=== PATIENT | female | born 1970 | race Caucasian/White ===

== ENCOUNTER 2017-09-14 08:05 | Emergency (ER) | payer MEDICAID, OTHER ==
[~2017-09-14] VITALS: Ht 162.6 cm; Wt 86.0 kg
[~2017-09-14 08:05] MED LIST: [UNRECOGNIZED DRUG - OTHER]
[2017-09-14] MEDS ORDERED: PREDNISONE 20MG TABLET PO ONE (09:15)
[2017-09-14 09:38] LABS: CLARITY URINE CLOUDY (CLEAR); COLOR URINE DARK YELLOW (YELLOW); KETONES URINE 4+ (NEGATIVE); LEUKOCYTE ESTERASE URINE TRACE (NEGATIVE); NITRITE URINE NEGATIVE (NEGATIVE); OCCULT BLOOD URINE NEGATIVE (NEGATIVE); PROTEIN URINE TRACE (NEGATIVE); SPECIFIC GRAVITY URINE 1.027 (1.005-1.030)
[2017-09-14] MEDS ORDERED: SODIUM CHLORIDE 0.9% 1,000 ML IV ONE (09:41)
[2017-09-14] MEDS ORDERED: KETOROLAC 30MG/ML VIAL IV ONE (09:45)
[2017-09-14 11:22] VITALS: BP 114/69
== END 2017-09-14 11:29 | disposition home or self-care (01) ==
LOC: ER 08:05
DX: J02.9 Acute pharyngitis, unspecified (principal); Z90.49 Acquired absence of other specified parts of digestive tract
CPT/HCPCS: 81003; 81025; 96361; 96374; 99284; J1885; J7030; J7512; Z7610

== ENCOUNTER 2018-03-07 13:37 | Emergency (ER) | payer OTHER ==
[~2018-03-07] VITALS: Ht 165.1 cm; Wt 89.0 kg
[2018-03-07 14:00] VITALS: BP 138/65
[2018-03-07] MEDS ORDERED: KETOROLAC 60MG/2ML VIAL IM ONE (14:45)
== END 2018-03-07 16:07 | disposition home or self-care (01) ==
LOC: ER 14:43
DX: M25.552 Pain in left hip (principal); W01.0XXA Fall on same level from slipping, tripping and stumbling without subsequent striking against object, initial encounter; Y93.89 Activity, other specified; Y92.9 Unspecified place or not applicable; Z90.49 Acquired absence of other specified parts of digestive tract
CPT/HCPCS: 73502; 81025; 96372; 99283; J1885

== ENCOUNTER 2018-10-01 02:53 | Emergency (ER) | payer OTHER ==
[~2018-10-01] VITALS: Ht 165.1 cm; Wt 91.0 kg
[2018-10-01] MEDS ORDERED: ONDANSETRON HCL 4MG/2ML INJ IV STA (07:20)
[2018-10-01] MEDS ORDERED: SODIUM CHLORIDE 0.9% 1,000 ML IV ONE (07:20)
[2018-10-01] MEDS ORDERED: KETOROLAC 30MG/ML VIAL IV STA (07:20)
[2018-10-01 07:59] LABS: BASOPHILS % 0.6 % (0.0-2.0); EOSINOPHILS % 2.7 % (0.0-5.0); HEMATOCRIT. 37.6 % (36.0-48.0); HEMOGLOBIN. 13.2 g/dL (12.0-16.0); LYMPHOCYTES % 30.1 % (20.0-50.0); MEAN CORPUSCULAR HEMOGLOBIN 30.5 pg (28.0-32.0); MEAN PLATELET VOLUME 7.8 fl (7.4-10.4); NEUTROPHILS % 57.6 % (40.0-76.0); PLATELET 204 x1000/uL (130-400); RED BLOOD CELL COUNT 4.32 mill/uL (4.2-5.4); RED CELL DISTRIBUTION WIDTH 13.6 % (11.6-14.6)
[2018-10-01 08:06] LABS: PROTHROMBIN TIME 10.2 sec (9.6-11.0)
[2018-10-01 08:08] LABS: CHLORIDE 109 mEq/L (98-107)
[2018-10-01 09:36] LABS: CLARITY URINE CLOUDY (CLEAR); COLOR URINE YELLOW (YELLOW); KETONES URINE NEGATIVE (NEGATIVE); LEUKOCYTE ESTERASE URINE NEGATIVE (NEGATIVE); NITRITE URINE NEGATIVE (NEGATIVE); OCCULT BLOOD URINE NEGATIVE (NEGATIVE); PROTEIN URINE NEGATIVE (NEGATIVE); SPECIFIC GRAVITY URINE 1.025 (1.005-1.030)
[2018-10-01 09:44] VITALS: BP 105/58
== END 2018-10-01 12:58 | disposition home or self-care (01) ==
LOC: ER 02:53
DX: R10.11 Right upper quadrant pain (principal); Z90.49 Acquired absence of other specified parts of digestive tract
CPT/HCPCS: 36415; 80053; 81003; 81025; 83690; 85025; 85610; 96374; 96375; 99283; J1885; J2405; J7030; Z7610

== ENCOUNTER 2018-10-01 23:04 | Emergency (ER) | payer OTHER ==
[~2018-10-01] VITALS: Ht 165.1 cm; Wt 93.0 kg
[2018-10-02] MEDS ORDERED: IBUPROFEN 600MG TABLET PO ONE (00:15)
[2018-10-02 01:39] VITALS: BP 125/74
== END 2018-10-02 01:44 | disposition home or self-care (01) ==
LOC: ER 23:04
DX: R10.9 Unspecified abdominal pain (principal); K76.0 Fatty (change of) liver, not elsewhere classified; R79.89 Other specified abnormal findings of blood chemistry; M19.90 Unspecified osteoarthritis, unspecified site; Z90.49 Acquired absence of other specified parts of digestive tract
CPT/HCPCS: 76700; 99284

== ENCOUNTER 2020-10-24 23:16 | Emergency (ER) | payer OTHER ==
[~2020-10-24] VITALS: Ht 162.6 cm; Wt 87.0 kg
[2020-10-25] MEDS ORDERED: ASPIRIN 81MG TABLET PO ONE (02:00)
[2020-10-25] MEDS ORDERED: NITROGLYCERIN OINT 1GM/INCH UDPKT TD ONE (02:00)
[2020-10-25 02:10] LABS: BASOPHILS % 0.8 % (0.0-2.0); EOSINOPHILS % 2.8 % (0.0-5.0); HEMATOCRIT. 38.4 % (36.0-48.0); HEMOGLOBIN. 13.2 g/dL (12.0-16.0); LYMPHOCYTES % 28.7 % (20.0-50.0); MEAN CORPUSCULAR HEMOGLOBIN 29.9 pg (28.0-32.0); MEAN PLATELET VOLUME 8.3 fl (7.4-10.4); MONOCYTES % 5.8 % (2.0-8.0); NEUTROPHILS % 61.9 % (40.0-76.0); PLATELET 253 x1000/uL (130-400); RED BLOOD CELL COUNT 4.41 mill/uL (4.2-5.4); RED CELL DISTRIBUTION WIDTH 13.7 % (11.6-14.6)
[2020-10-25 02:17] LABS: CHLORIDE 109 mEq/L (98-107)
[2020-10-25 07:14] VITALS: BP 114/65
== END 2020-10-25 07:15 | disposition short-term general hospital (02) ==
LOC: ER 23:16 → UNDOADMIN 10-25 04:47 → MICUSO 10-25 04:47 → UNDODISIN 10-25 07:14
DX: R07.9 Chest pain, unspecified (principal); M19.90 Unspecified osteoarthritis, unspecified site; Z87.442 Personal history of urinary calculi; Z79.899 Other long term (current) drug therapy; Z82.49 Family history of ischemic heart disease and other diseases of the circulatory system; Z90.49 Acquired absence of other specified parts of digestive tract
CPT/HCPCS: 36415; 71045; 80053; 84484; 85025; 85379; 93005; 99285; Z7610; A4565

== ENCOUNTER 2022-08-21 12:05 | Emergency (ER) | payer OTHER ==
[~2022-08-21] VITALS: Ht 162.6 cm; Wt 87.3 kg
[2022-08-21] MEDS ORDERED: KETOROLAC 60MG/2ML VIAL IM STA (13:01)
[2022-08-21] MEDS ORDERED: HYDR-4001 MT (14:17)
[2022-08-21] MEDS ORDERED: NAPR-681 PO (14:17)
[2022-08-21 15:28] VITALS: BP 142/77
== END 2022-08-21 15:40 | disposition home or self-care (01) ==
LOC: ER 13:56
DX: S92.352A Displaced fracture of fifth metatarsal bone, left foot, initial encounter for closed fracture (principal); S93.402A Sprain of unspecified ligament of left ankle, initial encounter; W18.39XA Other fall on same level, initial encounter; Y93.89 Activity, other specified; Y92.89 Other specified places as the place of occurrence of the external cause; Y99.8 Other external cause status
CPT/HCPCS: 29515; 73610; 73630; 96372; 99284; J1885; Z7610

== ENCOUNTER 2024-01-23 12:07 | Emergency (ER) | payer OTHER ==
[~2024-01-23] VITALS: Ht 165.1 cm; Wt 82.6 kg
[~2024-01-23 12:07] MED LIST changes: +HYDR-4001 MT; +NAPR-681 PO
[2024-01-23 12:11] VITALS: BP 127/57; RESP 16; TEMP 98.7; O2SAT 100
[2024-01-23 12:14] VITALS: PULSE 72; O2SAT 100
[2024-01-23 12:50] LABS: BASOPHILS % 0.3 % (0.0-2.0); EOSINOPHILS % 0.6 % (0.0-5.0); HEMATOCRIT. 40.2 % (36.0-48.0); HEMOGLOBIN. 13.2 g/dL (12.0-16.0); LYMPHOCYTES % 11.5 % (20.0-50.0); MEAN CORPUSCULAR HEMOGLOBIN 28.9 pg (28.0-32.0); MEAN CORPUSCULAR HGB CONC 32.8 g/dL (31.0-37.0); MEAN CORPUSCULAR VOLUME 88.1 fL (81.0-99.0); MEAN PLATELET VOLUME 8.5 fl (7.4-10.4); MONOCYTES % 3.8 % (2.0-8.0); NEUTROPHILS % 83.8 % (40.0-76.0); PLATELET 229 x1000/uL (130-400); RED BLOOD CELL COUNT 4.56 mill/uL (4.2-5.4); RED CELL DISTRIBUTION WIDTH 13.2 % (11.6-14.6); WHITE BLOOD COUNT 8.7 x1000/uL (4.5-11.0)
[2024-01-23 12:58] LABS: CHLORIDE 107 mEq/L (98-107); POTASSIUM 3.9 mEq/L (3.5-5.1); SODIUM 139 mEq/L (136-145)
[2024-01-23 12:59] LABS: CARBON DIOXIDE 25 mEq/L (21-32)
[2024-01-23 13:00] LABS: CALCIUM 9.9 mg/dL (8.7-10.4)
[2024-01-23] MEDS ORDERED: ACETAMINOPHEN 325MG TABLET PO ONE (13:00)
[2024-01-23] MEDS ORDERED: MECLIZINE 25MG TABLET PO ONE (13:00)
[2024-01-23] MEDS ORDERED: METOCLOPRAMIDE HCL 10MG TABLET PO ONE (13:00)
[2024-01-23 13:04] LABS: CREATININE 0.7 mg/dL (0.6-1.0); GLUCOSE 155 mg/dL (70-105)
[2024-01-23 13:05] LABS: UREA NITROGEN BLOOD 14 mg/dL (9-23)
[2024-01-23 13:06] LABS: ALANINE AMINOTRANSFERASE 14 IU/L (10-49); ALBUMIN 4.4 g/dL (3.2-4.8); ASPARTATE AMINOTRANSFERASE 17 IU/L (<34)
[2024-01-23 13:07] LABS: BILIRUBIN DIRECT 0.1 mg/dL (<=3.0); BILIRUBIN TOTAL 0.5 mg/dL (0.1-1.0)
[2024-01-23 13:14] LABS: TROPONIN I HIGH SENSITIVITY < 4 ng/L (3.0-34)
[2024-01-23 14:00] LABS: HCG SCREEN NEGATIVE
[2024-01-23] MEDS ORDERED: MECL-299 MT (16:06)
[2024-01-23] MEDS ORDERED: METO5TAB86 MT (16:37)
== END 2024-01-23 17:57 | disposition home or self-care (01) ==
LOC: ER 12:22
DX: R42 Dizziness and giddiness (principal); Z79.899 Other long term (current) drug therapy; Z90.49 Acquired absence of other specified parts of digestive tract; Z98.890 Other specified postprocedural states
CPT/HCPCS: 99284; 70450; 80076; 80048; 82962; 84703; 85025; 84484; 36415; 93005; J8597 ×2

== ENCOUNTER 2024-10-29 00:37 | Emergency (ER) | payer MEDICAID, OTHER ==
[~2024-10-29] VITALS: Ht 162.6 cm; Wt 79.4 kg
[~2024-10-29 00:37] MED LIST changes: +MECL-299 MT; +METO5TAB86 MT
[2024-10-29 00:50] VITALS: O2SAT 99
[2024-10-29] MEDS: KETOROLAC 15MG/ML VIAL IM ONE (02:29)
[2024-10-29] MEDS: LIDOCAINE 5% PATCH TOP SCH (02:29)
[2024-10-29 03:14] VITALS: TEMP 37.1
[2024-10-29] MEDS ORDERED: CYCL5TAB3 MT (03:28)
[2024-10-29] MEDS ORDERED: NAPR-1176 MT (03:28)
[2024-10-29] MEDS ORDERED: LIDO-53 TP (03:28)
[2024-10-29 03:44] VITALS: BP 129/69; PULSE 61; RESP 15; O2SAT 99
== END 2024-10-29 03:49 | disposition home or self-care (01) ==
LOC: ER 00:47
DX: M54.2 Cervicalgia (principal); M54.6 Pain in thoracic spine; M19.90 Unspecified osteoarthritis, unspecified site; Z90.49 Acquired absence of other specified parts of digestive tract; Z79.1 Long term (current) use of non-steroidal anti-inflammatories (NSAID); V89.2XXA Person injured in unspecified motor-vehicle accident, traffic, initial encounter; Y93.89 Activity, other specified; Y92.89 Other specified places as the place of occurrence of the external cause; Y99.8 Other external cause status
CPT/HCPCS: 96372; 99283; J1885; Z7610